=== PATIENT | female | born 1985 | race African-American/Black ===

== ENCOUNTER 2017-07-04 11:09 | Emergency (ER) | payer OTHER ==
[~2017-07-04] VITALS: Ht 177.8 cm; Wt 104.6 kg
[~2017-07-04 11:09] MED LIST: CIPRO500 MG PO; Colace PO; FIORICET,ESG1 TABLET PO; KEFLEX500 MG PO; LABETALOL HCL200 MG PO; Levaquin PO; MACROBID100 MG PO; MEDROL DOSEPAK4 MG PO; METOPROLOL TART50 MG PO; MOTRIN800 MG PO; MUCUS ER600 MG PO; NAPROSYN500 MG PO; NAPROXEN500 MG PO; NOHOMEMEDS; PROMETHAZINE HC25 M1 PO; PYRIDIUM200 MG PO; TESSALON PERLE100 MG PO; TRAMADOL HCL50 MG PO; TYLENOL REGULA325 MG PO; Ultram PO; ZOFRAN4 MG PO; ZYRTEC10 M2 PO
[2017-07-04] MEDS ORDERED: MOTRIN600 MG PO (15:03)
[2017-07-04] MEDS ORDERED: MUCINEX1200 MG PO (15:03)
[2017-07-04 15:21] VITALS: BP 136/93
== END 2017-07-04 15:22 | disposition home or self-care (01) ==
LOC: EME 11:09
DX: J40 Bronchitis, not specified as acute or chronic (principal); B34.9 Viral infection, unspecified
CPT/HCPCS: 71020; 99281; 99284